=== PATIENT | female | born 1980 | race American Indian/Alaskan Native ===

== ENCOUNTER 2016-10-28 04:07 | Emergency (ER) | payer MEDICAID ==
[2016-10-28 04:18] VITALS: BP 122/78
--- NOTE | 2016-10-28 05:43 | Emergency Department Report ---
HPI - General Chief Complaint: Urogenital-Female Time Seen by Provider: 10/28/16 05:34 - HPI HPI: Patient is a 36-year-old female presents to ED complaining of vaginal irritation that started 3 days ago. Patient states she is taking some amoxicillin in the past 6 days her to take. Patient states she went to her [facility] [employer] doctor when the symptoms initially started and Tested for STDs which was negative. Patient describes vaginal discharge is cloudy and whitish lots of vaginal itching. She has had vaginal itching and is confined to inside [place] and outside of the vagina Patient states his symptoms are 3 days ago. She went to see her [employer] 5 days ago Patient denies fevers/chills/nausea/vomiting/dysuria/ ED Past Medical Hx - Past Medical History Previous Medical History?: No - Surgical History Past Surgical History?: No - Social History Smoking Status: Never Smoker Substance Use Type: None - Medications Home Medications: Home Medications Medication Instructions Recorded Confirmed Last Taken Type Permethrin 5% [Acticin 5% CREAM] 1 applicatio TP ONCE #1 tube 02/21/14 Unknown Rx hydrOXYzine HCL [Atarax] 25 mg PO Q6HR PRN #20 tablet 02/21/14 Unknown Rx predniSONE [Deltasone] 50 mg PO QDAY #5 tab 02/21/14 Unknown Rx Terconazole [Terazol 3 Vag Cream] 1 applicator VG QHS #3 cream.appl 10/28/16 Unknown Rx ED Review of Systems ROS: Stated complaint: REACTION TO ANITBIOTIC Other details as noted in HPI Constitutional: denies: chills, fever Eyes: denies: eye pain, eye discharge, vision change ENT: denies: ear pain, throat pain Respiratory: denies: cough, shortness of breath, wheezing Cardiovascular: denies: chest pain, palpitations Endocrine: no symptoms reported Gastrointestinal: denies: abdominal pain, nausea, diarrhea Genitourinary: discharge, other (vaginal itching). denies: urgency, dysuria, frequency, hematuria Musculoskeletal: denies: back pain, joint swelling, arthralgia Skin: denies: rash, lesions Neurological: denies: headache, weakness, paresthesias Psychiatric: denies: anxiety, depression Hematological/Lymphatic: denies: easy bleeding, easy bruising Physical Exam - Physical Exam Vital Signs: Vital Signs 10/28/16 04:12 Temperature 97.8 F Pulse Rate 69 Respiratory 18 Rate Blood Pressure 122/78 O2 Sat by Pulse 100 Oximetry Physical Exam: GENERAL: Alert and oriented x3, no apparent distress, Normal Gait, atraumatic. HEAD: Head is normocephalic and a-traumatic. LUNGS: Symetrical with respiration, No wheezing, no rales or crackles, CTAB. HEART: S1, S2 present, regular rate and rhythm without murmur, no rubs, no gallops. ABDOMEN: No organomegaly was noted,Positive bowel sounds, soft, and non- distended. . Nontender to palpation on all Quadrants, NO CVA tenderness. GENITOURINARY: External genitalia without erythema, exudate or discharge. Mild labialirritation,. Vaginal vault is with mild greenish discharge. Cervix is of normal color without lesion. Cervical os is closed. No bleeding noted. Uterus is noted to be of normal size and nontender. No cervical motion tenderness. No masses are palpated. The adnexa are without masses or tenderness. NEUROLOGIC: No focal Deficit, Cranial nerves II through XII are grossly intact. No loss of sensation, PSYCHIATRIC: Mood is congruent with affect, denies suicidal or homicidal ideations. SKIN: Warm and dry, No lesions, No ulceration or induration present. ED Course Vital Signs 10/28/16 04:12 Temperature 97.8 F Pulse Rate 69 Respiratory 18 Rate Blood Pressure 122/78 O2 Sat by Pulse 100 Oximetry ED Medical Decision Making - Medical Decision Making 36-year-old female presents with vaginitis ED course: Wet prep studies collected and sent to lab. Patient received 150 mg of Diflucan in ED. Discussed with patient antibiotic use can cause Ilene vaginitis We'll treat for caffeinated based on patient's symptoms and vaginal exam Discussed with patient to take medication as prescribed. Discussed to follow up with [employer] doctor within a week. Vital signs are stable patient is in no acute respiratory distress Patient verbally understands and will follow-up. Critical care attestation.: If time is entered above; I have spent that time in minutes in the direct care of this critically ill patient, excluding procedure time. ED Disposition Clinical Impression: Vaginitis Qualifiers: Chronicity: acute Qualified Code(s): N76.0 - Acute vaginitis Disposition: DISCHARGED TO HOME OR SELFCARE Is pt being admited?: No Does the pt Need Aspirin: No Condition: Stable Instructions: Vulvovaginal Candidiasis (ED), Vaginitis (ED) Prescriptions: Terconazole [Terazol 3 Vag Cream] 1 applicator VG QHS #3 cream.appl Referrals: PRIMARY CARE,MD [Primary Care Provider] - 3-5 Days Forms: Work/School Release Form(ED) Time of Disposition: 06:44
[2016-10-28] MEDS ORDERED: DIFLUCAN PO ONE (06:15)
== END 2016-10-28 07:04 | disposition home or self-care (01) ==
LOC: ED 04:07
DX: N76.0 Acute vaginitis (principal)
CPT/HCPCS: 87210; 99282

== ENCOUNTER 2018-08-30 15:10 | Outpatient (CLI) | payer OTHER | END 2018-08-30 15:11 | disposition home or self-care (01) | LOC: LABHHL 15:10 | PROVIDERS: ATTEND Surgery | DX: D24.2 Benign neoplasm of left breast (principal) | CPT/HCPCS: 88305 ==